=== PATIENT | male | born 1975 | race Caucasian/White ===

== ENCOUNTER 2023-02-16 20:28 | Emergency (ER) | payer OTHER, SELFPAY ==
--- NOTE | ~2023-02-16 | CT_ITS ---
EXAMINATION: CT abdomen pelvis w con DATE: 02/16/2023 22:07 INDICATION: left flank tenderness TECHNIQUE: Computed tomography (CT) of the abdomen and pelvis was performed with 100 mL Omnipaque-350 intravenous contrast. Automated exposure control and iterative reconstruction technique were employe d. The dose-length product was 429.61 mGy-cm. COMPARISON: 06/13/2014. FINDINGS: Lower thorax: Unremarkable Liver: Normal. Biliary/Gallbladder: Gallbladder is normal. No bile duct dilation. Pancreas: No mass or duct dilation. Spleen: Normal. Adrenals:No mass. Kidneys: Moderate left perinephric stranding. Delayed left nephrogram. Mild left hydronephrosis and p eriureteral stranding. The right kidney is normal. GI tract: Moderate distal esophageal and gastric wall edema No small or large bowel dilation. Normal appendix. Mild diverticulosis without diverticulitis. Mesentery/Peritoneum: No ascites, mass, or free air. Retroperitoneum: No mass. Pelvis: Moderate bladder wall thickening in a partially distended urinary bladder. Mild prostatomegal y. 5 mm calcification in the distal left ureter. Soft Tissues: Soft tissues and body wall unremarkable. Bones: No acute osseous finding. IMPRESSION: 5 mm stone in the distal left ureter causing mild-moderate obstructive uropathy. Bladder wall thicken ing may be secondary to inadequate distention or cystitis. Reviewed, dictated and finalized at location K. IMPRESSION: 5 mm stone in the distal left ureter causing mild-moderate obstructive uropathy . Bladder wall thickening may be secondary to inadequate distention or cystitis .
[2023-02-16 20:30] VITALS: BP 148/91; PULSE 107; RESP 18; TEMP 36; O2SAT 99
[2023-02-16 20:46] LABS: Basophils Absolute Auto 0.1 K/mm3 (0.0-0.1); Basophils Percent Auto 0.4 % (0.2-1.2); Eosinophils Percent Auto 0.2 % (0-4.4); Hematocrit 45.9 % (42.0-52.0); Hemoglobin 15.2 g/dL (14.0-18.0); Immature Granulocyte Absolute 0.04 K/mm3 (0.00-0.031); Immature Granulocyte Percent A 0.3 % (0-0.5); Lymphocytes Absolute Auto 1.06 K/mm3 (0.9-3.2); Lymphocytes Percent Auto 8.4 % (18.3-44.2); Mean Corpuscular HGB Conc 33.1 g/dl (32-36); Mean Corpuscular Volume 90.7 fl (80-100); Mean Platelet Volume 9.1 fl (7.4-10.4); Monocytes Percent Auto 8.3 % (2.6-8.5); Neutrophils Absolute Auto 10.3 K/mm3 (1.3-6.7); Neutrophils Percent Auto 82.4 % (45.5-73.1); Platelet Count Result 192 k/mm3 (150-375); Red Blood Count 5.06 M/mm3 (4.6-6.20); Red Cell Distribution Width 12.7 % (11.5-14.5); White Blood Count 12.6 K/mm3 (4.5-10.0)
[2023-02-16 20:55] LABS: Alanine Aminotransferase 25 U/L (6-50); Albumin Level 4.8 g/dL (3.5-5.1); Alkaline Phosphatase 58 U/L (38-126); Anion Gap 9 mmol/L (8-16); Aspartate Amino Transferase 33 U/L (17-59); Bilirubin,Total 0.9 mg/dL (0.2-1.3); Blood Urea Nitrogen 19 mg/dL (9-20); Calcium 9.5 mg/dL (8.4-10.2); Carbon Dioxide 29 mmol/L (22-30); Chloride 100 mmol/L (98-107); Estimated CRCL calculation 55 ml/min; Estimated Glomerular Filt Rate 50; Glucose 122 mg/dL (65-110); Lipase 50 U/L (23-300); Potassium 3.9 mmol/L (3.4-5.0); Sodium 138 mmol/L (137-145)
--- NOTE | 2023-02-16 21:28 | ED.GENADULT ---
HPI - General Adult General Chief complaint: Abdominal Pain <AMINA Yung Last Filed: 02/17/23 01:25> Stated complaint: side pain <AMINA Yung Last Filed: 02/17/23 01:25> Time Seen by Provider: 02/16/23 21:14 <AMINA Yung Last Filed: 02/17/23 01:25> Source: patient <AMINA Yung Last Filed: 02/17/23 01:25> Mode of arrival: ambulatory <AMINA Yung Last Filed: 02/17/23 01:25> Limitations: no limitations <AMINA Yung Last Filed: 02/17/23 01:25> History of Present Illness HPI narrative: This is a 47-year-old male who presents to the ED with chief complaint of left lower abdominal pain beginning around 0 400 this morning. States that the pain has been intermittent all day but was at a 7 out of 10 when he decided to come to the ER tonight. As I interview him he states it is now down to a 1 out of 10 again. States he had some vomiting at home earlier today and then 1 episode here in the department. He states he is no longer feeling nauseous. Reports that he has chills and is feeling cold. Denies problems with bowel movements. Denies urinary symptoms. Denies chest pain, shortness of breath, cough, palpitations, lower leg swelling. <AMINA Yung Last Filed: 02/17/23 01:25> Related Data Allergies/adverse reactions: Allergies Allergy/AdvReac Type Severity Reaction Status Date / Time No Known Allergies Allergy Unverified 06/13/14 12:11 <AMINA Yung Last Filed: 02/17/23 01:25> Exam Narrative: GENERAL: Laying under several blankets and shivering. Slightly diaphoretic. Conversational. HEAD: Normocephalic, atraumatic. EYES: PERRLA and EOMI. ENT: Nares clear, no rhinorrhea or epistaxis. Mucous membranes moist. Oropharynx without tonsillar hypertrophy exudate or other lesions. NECK: Supple. No adenopathy or masses. CHEST: No respiratory distress. Clear to auscultation. No wheezes rales or rhonchi HEART: Regular rate and rhythm. No murmur heard. Normal peripheral pulses. ABDOMEN: Left flank tenderness present. Negative right flank tenderness. Soft, otherwise nontender, nondistended, normal active bowel sounds. Negative peritoneal signs. Negative Chaidez sign. Negative McBurney's point. MSK: Normal range of motion. No edema. SKIN: Warm, dry, no rash. NEURO: Alert and oriented x3. No focal deficits. PSYCH: Normal mood and affect. <Fabian Marroquin PA-C - Last Filed: 02/17/23 01:25> Course ASSISTANT PROFESSOR OF RADIOLOGY/PA Physician Supervision I agree with midlevel documentation; I performed the medical decision making component of this evaluation. Briefly, patient diagnosed with kidney stone, case discussed with urology, he is more comfortable after treatment here agreeable to outpatient management, stable for discharge with follow up <Lorenza Lau MD - Last Filed: 02/17/23 03:08> Vital Signs Vital signs: Vital Signs Temperature 96.8 F L 02/16/23 20:30 Pulse Rate 107 H 02/16/23 20:30 Respiratory Rate 18 02/16/23 20:30 Blood Pressure 148/91 H 02/16/23 20:30 Pulse Oximetry 99 02/16/23 20:30 Oxygen Delivery Room Air 02/16/23 20:30 Temperature 96.8 F L 02/16/23 20:30 Pulse Rate 70 02/17/23 01:02 Respiratory Rate 15 02/17/23 01:02 Blood Pressure 129/82 02/17/23 01:02 Pulse Oximetry 97 02/17/23 01:02 Oxygen Delivery Room Air 02/16/23 20:30 <Fabian Marroquin PA-C - Last Filed: 02/17/23 01:25> Vital Signs Temperature 96.8 F L 02/16/23 20:30 Pulse Rate 107 H 02/16/23 20:30 Respiratory Rate 18 02/16/23 20:30 Blood Pressure 148/91 H 02/16/23 20:30 Pulse Oximetry 99 02/16/23 20:30 Oxygen Delivery Room Air 02/16/23 20:30 Temperature 96.8 F L 02/16/23 20:30 Pulse Rate 70 02/17/23 01:02 Respiratory Rate 15 02/17/23 01:02 Blood Pressure 129/82 02/17/23 01:02 Pulse Oximetry 97 02/17/23 01:02 Oxygen Delivery Room Air 02/16/23 20:30 <Vi
[2023-02-16] MEDS: SODIUM CHLORIDE 0.9% IV 1,000 ML 999 ML IV CONT (21:57)
[2023-02-16] MEDS: ONDANSETRON INJ 4 MG/2 ML VIAL IV PUSH (22:08)
[2023-02-16] MEDS: HYDROmorphone HCL INJ (*CRX) 1 MG/ML SYR 0.5 MG IV PUSH (22:09)
[2023-02-16] MEDS: fentaNYL CITRATE INJ (*CRX) 100 MCG/2 ML VIAL 50 MCG IV PUSH (23:41)
[2023-02-17 00:06] LABS: Appearance Urine Clear (Clear); Bacteria Urine None Seen /hpf; Bilirubin Urine Negative (Negative); Blood Urine 2+ (Negative); Color Urine Yellow (Yellow); Glucose Urine UA Negative (Negative); Ketones Urine 2+ mg/dL (Negative); Leukocyte Esterase Ur Trace LEU/UL (Negative); Nitrate Urine Negative (Negative); Non Pathogenic Casts 0-2; Protein Urine Negative (Negative); Squamous Epithelial Cell Urine None seen /hpf (Few); WBC Urine 21-50 /hpf; pH Urine 5.5 (5.0-9.0)
[2023-02-17 00:22] LABS: Add Urine Microscopic? YES; Specific Grav Ur 1.069 (1.001-1.035)
[2023-02-17 01:02] VITALS: BP 129/82; PULSE 70; RESP 15; O2SAT 97
== END 2023-02-17 01:03 | disposition home or self-care (01) ==
PROVIDERS: Emergency Medicine; Emergency Provider Physician Assistant; PCP Family Medicine
DX: N20.1 Calculus of ureter (principal)
CPT/HCPCS: 36415; 74177; 80053; 81001; 83690; 85025; 87086; 96361; 96374; 96375; 99284; J1170; J2405; J3010; J7030; Q9967

== ENCOUNTER 2025-02-02 07:35 | Day surgery (SDC) | payer OTHER, SELFPAY ==
[2024-09-02 13:46] VITALS: BMI 27.8
[2025-01-14 12:56] VITALS: BMI 28.0
[2025-02-02 08:22] VITALS: BMI 27.4
[2025-02-02 08:24] VITALS: BP 121/84; PULSE 58; RESP 16; TEMP 36.6; O2SAT 100
--- NOTE | 2025-02-02 08:56 | P.PNAN_ITS ---
Anes - Eval Pre Procedure Procedure: Operation Date: 02/02/25 09:30 Proposed Procedures p Screening Colonoscopy - Isai Kinney MD Date/Time: 02/02/25 08:56 Pre Op Diagnosis: Neoplasm screening Patient Data Age: 49 Gender: M Height: 1.78 m Weight: 86.8 kg Last Vital Signs Temp 36.6 C 02/02/25 08:24 Pulse 58 L 02/02/25 08:24 Resp 16 02/02/25 08:24 BP 121/84 02/02/25 08:24 Pulse Ox 100 02/02/25 08:24 O2 Del Method Room Air 02/02/25 08:24 Allergies Allergy/AdvReac Type Severity Reaction Status Date / Time No Known Allergies Allergy Verified 02/02/25 08:08 Home Medications ?Medication ?Instructions ?Recorded ?Confirmed ?Type No Home Medications 09/02/24 01/14/25 History Patient hx anesthesia problems: none Family hx anesthesia problems: none Results Review: All pre-operative results and documents have been reviewed as part of the pre- operative evaluation. [facility] Surgical History Surgical History History of excision of pilonidal cyst (2000) Social History Social History Smoking status: Never smoker Alcohol use details: occasionally Substance use type: does not use Living arrangements: with family Spiritual care concerns: No Exam Day of Procedure 02/02/25 08:56 Heart: regular rate and rhythm Lungs: clear to auscultation Airway: Mallampati scale class II Neurological: alert and oriented
--- NOTE | 2025-02-02 09:42 | PM.IMHP ---
H&P: HPI History of Present Illness Date/Time: 02/02/25 09:42 Chief Complaint: screening colonoscopy Narrative: This is the patient's first colonoscopy. There are no GI symptoms and there is no family history of colorectal cancer. Review of Systems Review of Systems: All systems reviewed & are unremarkable except as noted in HPI and below PMFSH Surgical History Surgical History History of excision of pilonidal cyst (2000) Social History Social History Smoking status: Never smoker Alcohol use details: occasionally Substance use type: does not use Living arrangements: with family Spiritual care concerns: No Meds Home Medications and Allergies Home Medications ?Medication ?Instructions ?Recorded ?Confirmed ?Type No Home Medications 09/02/24 01/14/25 History Allergies Allergy/AdvReac Type Severity Reaction Status Date / Time No Known Allergies Allergy Verified 02/02/25 08:08 Vital Signs Vital Signs - 24 hr 02/02/25 08:24 Temperature 97.8 F Pulse Rate 58 L Respiratory Rate 16 Blood Pressure 121/84 Pulse Oximetry 100 Oxygen Delivery Room Air Exam Const: General: cooperative and healthy appearing Resp: Effort & Inspection: normal respiratory effort and able to speak in complete sentences Auscultation: clear to auscultation bilaterally Cardio: Rate: regular rate Rhythm: regular rhythm GI: Inspection: normal to inspection GI Palp: No No hepatosplenomegaly present Auscultation: normal bowel sounds Rectal Exam: deferred Skin: General skin exam: normal color Psych: Appearance: grossly normal Mental Status: mental status grossly normal Assessment and Plan Assessment and plan (1) Encounter for screening colonoscopy: Code(s): Z12.11 - Encounter for screening for malignant neoplasm of colon Status: Acute Assessment and Plan: The patient is deemed a good candidate for the procedure. Consent signed. Will proceed.
[2025-02-02] MEDS: LACTATED RINGERS 1,000 ML 150 ML IV CONT (09:52)
[2025-02-02 10:10] VITALS: BP 108/75; PULSE 72; RESP 14; O2SAT 98
--- NOTE | 2025-02-02 10:17 | WPDANESPN ---
Anes - Prog Note Post-Op Date/Time: 02/02/25 10:17 Vital Signs: Last Vital Signs Temp 97.8 F 02/02/25 08:24 Pulse 58 L 02/02/25 08:24 Resp 16 02/02/25 08:24 BP 121/84 02/02/25 08:24 Pulse Ox 100 02/02/25 08:24 O2 Del Method Room Air 02/02/25 08:24 Pain Score (VAS): no I/O: Intake & Output 02/01/25 02/02/25 02/02/25 23:59 07:59 15:59 Intake Total 200 Balance 200 Patient Feedback: Patient satisfied with anesthetic care.
[2025-02-02 10:20] VITALS: BP 111/80; PULSE 61; RESP 13; O2SAT 100
== END 2025-02-02 10:48 | disposition home or self-care (01) ==
PROVIDERS: PCP Family Medicine Adolescent Medicine; Referring Provider Family Medicine Adolescent Medicine; Visit Provider Internal Medicine Gastroenterology
PROC: 0DJD8ZZ Inspection of Lower Intestinal Tract, Via Natural or Artificial Opening Endoscopic (ICD-10-PCS; CPT 45378; principal; 2025-02-02 09:30)
DX: Z12.11 Encounter for screening for malignant neoplasm of colon (principal)
CPT/HCPCS: 45378